=== PATIENT | female | born 1955 | race African-American/Black ===

== ENCOUNTER 2017-11-04 11:05 | Emergency (ER) | payer OTHER ==
[~2017-11-04] VITALS: Ht 160 cm; Wt 104.3 kg
[2017-11-04] MEDS ORDERED: FLUORESCEIN SOD(OPTH) 1 MG STRP OP ONE (12:00)
[2017-11-04] MEDS ORDERED: TETRACAINE HCL 0.5% OPTH SOLN 4 ML BTL OP ONE (12:00)
== END 2017-11-04 15:08 | disposition short-term general hospital (02) ==
LOC: ER 11:05
DX: H53.8 Other visual disturbances (principal); H54.7 Unspecified visual loss; R51 Headache; I10 Essential (primary) hypertension; E03.9 Hypothyroidism, unspecified
CPT/HCPCS: 99283